=== PATIENT | female | born 1975 | race Caucasian/White ===

== ENCOUNTER 2018-12-20 06:10 | Inpatient (IN) | payer BC, OTHER ==
[~2018-12-20 06:10] MED LIST: Buffered Lidocaine 1% SYRIN* 1 ML/SYRINGE INTRADERM ONE; Famotidine IV* 10 MG/ML 2 ML (20 mg) IV ONE; Lactated Ringers 1000 ML Bag* 1,000 ML IV SCH; Sodium Citrate/Citric Acid* 15 ML UDC PO ONE
[2018-12-20 07:14] LABS: Urine Benzodiazepine Screen None Detected (None Detect); Urine Opiates Screen None Detected (None Detect)
[2018-12-20] MEDS ORDERED: Morphine PF AMP (0.5MG/ML)* 5 MG/10 ML AMP ONE (07:46)
[2018-12-20] MEDS ORDERED: Ondansetron INJ* 2 MG/ML VIAL ONE (07:47)
[2018-12-20] MEDS ORDERED: OXYTOCIN* 10 UNITS/ML 1 ML VIAL ONE (07:47)
[2018-12-20] MEDS ORDERED: Dexamethasone IV* 4 MG/ML 1 ML (4 MG) ONE (07:47)
[2018-12-20] MEDS ORDERED: Clindamycin 900 MG/D5W BAG(*) 900 MG/50 ML BAG IVPB ONE (08:00)
[2018-12-20] MEDS ORDERED: Phenylephrine 40 MCG/ML SYRINGE ONE (09:01)
[2018-12-20] MEDS ORDERED: fentaNYL* 50 MCG/ML 2 ML VIAL (100 MCG VIAL) ONE (09:10)
[2018-12-20] MEDS ORDERED: oxyCODONE/Acetamin 5/325 MG* TAB PO PRN (09:33)
[2018-12-20] MEDS ORDERED: Witch Hazel PAD* JAR TOPICAL PRN (09:33)
[2018-12-20] MEDS ORDERED: Dibucaine 1% 28.35 GM TUBE PR PRN (09:33)
[2018-12-20] MEDS ORDERED: Scopolamine 1.5 mg* PATCH TRANSDERM PRN (09:39)
[2018-12-20] MEDS ORDERED: fentaNYL* 50 MCG/ML 2 ML VIAL (100 MCG VIAL) IV PRN (09:39)
[2018-12-20] MEDS ORDERED: Ondansetron INJ* 2 MG/ML VIAL IV PRN ×2 (09:39)
[2018-12-20] MEDS ORDERED: Naloxone* 0.4 MG/ML 1 ML VIAL IV PRN ×2 (09:39)
[2018-12-20] MEDS ORDERED: DiMENhydriNATE IV* 50 MG/ML VIAL IV PUSH PRN ×2 (09:39→09:47)
[2018-12-20] MEDS ORDERED: Nalbuphine* 10 MG/ML 1 ML VIAL IV PRN ×2 (09:39→09:47)
[2018-12-20] MEDS ORDERED: Lactated Ringers 1000 ML Bag* 1,000 ML IV SCH (10:00)
[2018-12-20] MEDS: Ketorolac INJ* 30 MG/ML 1 ML VIAL IV PUSH SCH ×3 (10:06→22:02)
[2018-12-20] MEDS: Simethicone TAB* 80 MG TAB.CHEW PO SCH ×3 (14:26→21:04)
[2018-12-20] MEDS: Docusate CAP* 100 MG PO SCH ×2 (17:24→21:04)
--- NOTE | 2018-12-20 17:38 | OP ---
DATE OF OPERATION: 12/20/18 - ROOM #115 DATE OF : 75 SURGEON: Ar Serrano MD CHEMICAL LAB TECHNICIAN: Kasi Hunter MD ANESTHESIOLOGIST: Dr. Bey. ANESTHESIA: Spinal. PRE-OP DIAGNOSES: Thirty nine weeks' gestation, advanced maternal age and desiring elective section. POST-OP DIAGNOSES: Thirty nine weeks' gestation, advanced maternal age and desiring elective section. OPERATIVE PROCEDURE: Primary low transverse section with vacuum assist. ESTIMATED BLOOD LOSS: 800 cc. URINE OUTPUT: 50 cc. IV FLUIDS: 1700 cc lactated Ringer's. MATERIALS TO LAB: Cord blood. INDICATIONS: This patient was a 43-year-old 1, para 0, with a from in vitro fertilization. The patient's was otherwise uncomplicated other than advanced maternal age. After discussion regarding her options, the patient desired to have a primary section rather than take the risks of labor. She was extensively counseled and consent was signed. FINDINGS: Normal-appearing uterus, fallopian tubes, and ovaries. Delivery was productive of a 6 pounds 15 ounces female with Apgars of 9 and 9. TIME OF DELIVERY: 851 COMPLICATIONS: None. DESCRIPTION OF PROCEDURE: The risks, benefits, and alternatives were described to the patient and informed consent was obtained. The patient was taken to the operating room with IV running where spinal anesthesia was induced and found to be adequate. The patient was prepped and draped in the normal sterile fashion in the dorsal supine position with a leftward tilt. A Pfannenstiel skin incision was made with a scalpel and this was carried down to the underlying fascia sharply. The fascia was then scored in the midline with the scalpel. The incision was extended using Joseph scissors. The rectus muscles were dissected off the rectus fascia using blunt and sharp dissection. The rectus muscles were in the midline bluntly. The peritoneum was also entered bluntly. A bladder blade was placed. A bladder flap was created sharply using Metzenbaum scissors. A low transverse uterine incision was made with the scalpel. The lower edge of the placenta was encountered which resulted in moderate bleeding. The incision and blunt dissection was carried down to the amniotic cavity which was productive of clear fluid. The uterine incision was extended with blunt traction. The head was elevated to the level of the incision, but delivery of the head through the incision was difficult, partly because of the anterior placenta. A Kiwi vacuum was applied to the head and with gentle traction and fundal pressure, the head was able to be delivered. The Kiwi was removed. With fundal pressure, the shoulders and body delivered without difficulty. The infant had good tone and cried shortly after delivery. The cord was doubly clamped and cut. The was then handed to the awaiting joss house keeper. Cord blood was collected. The placenta then delivered with manual extraction. The uterus was then exteriorized and cleared of all clots and debris. The uterine incision was reapproximated using 0 Vicryl in a running-locked fashion. A second layer of imbricating sutures of 0 Vicryl was also placed with good hemostasis. The posterior cul-de-sac was irrigated with saline. The uterus was then returned to the abdomen, and the incision was reinspected and noted to be hemostatic. The peritoneum was closed with 3-0 Vicryl in a running fashion. The fascia was closed with 0 Vicryl in a running fashion. The skin was then closed with 4-0 Monocryl in a subcuticular stitch. Mastisol and Steri-Strips were placed over the incision which was then covered with a sterile bandage. The patient tolerated the procedure well. Sponge, lap, and needle counts were correct x2. [id number]/[facility] #: [id number] [facility] HOSPITALCassie
[2018-12-21] MEDS: Ketorolac INJ* 30 MG/ML 1 ML VIAL IV PUSH SCH (05:29)
[2018-12-21 06:50] LABS: ABS Basophils 0.1 10^3/ul (0-0.2); ABS Lymphocytes 2.3 10^3/ul (1.0-4.8); ABS Neutrophils 9.7 10^3/ul (1.5-7.7); Eosinophil % 0.2 %; Hematocrit 27 % (35-47); Hemoglobin 9.2 g/dL (12.0-16.0); Lymphocyte % 17.2 %; Mean Corpuscular HGB Conc 34 g/dL (31-36); Mean Corpuscular Hemoglobin 26 pg (27-31); Mean Corpuscular Volume 78 fL (80-97); Platelet Count 214 10^3/uL (150-450); Red Blood Count 3.48 10^6 /uL (3.70-4.87); Red Cell Distribution Width 14 % (10-15); White Blood Count 13.1 10^3/uL (3.5-10.8)
[2018-12-21] MEDS: Ferrous Gluconate TAB* 324 MG TAB PO SCH ×2 (09:01→20:48)
[2018-12-21] MEDS: Docusate CAP* 100 MG PO SCH ×3 (09:01→20:50)
[2018-12-21] MEDS: Simethicone TAB* 80 MG TAB.CHEW PO SCH ×3 (09:01→18:24)
--- NOTE | 2018-12-21 10:21 | PN ---
Progress Note - Progress Note Date of Service: 12/21/18 - POD#1 s/p LTCS Note: Patient is POD#1 s/p LTCS. She is trying to breastfeed her infant with support. She had the pimentel catheter removed and was able to void urine without difficulty. She had nausea yesterday but received the scopolamine patch which has helped. Vital Signs Temp 98.7 F 12/21/18 07:57 Pulse 76 12/21/18 07:57 Resp 16 12/21/18 07:57 BP 100/56 12/21/18 07:57 Pulse Ox 98 12/21/18 06:06 Intake & Output 12/20/18 12/21/18 12/21/18 18:59 06:59 18:59 Intake Total 2000 Output Total 444 986 7980 Balance 1100 -650 -1150 Intake: IV Fluids 1000 LR 1000 IVPB 1000 LR 1000 Output: Pimentel 739 632 9741 abdomen soft, mild distension, dressing dry and intact extremities nontender lochia moderate Laboratory Results - last 24 hr 12/21/18 06:36 WBC 13.1 H RBC 3.48 L Hgb 9.2 L Hct 27 L MCV 78 L MCH 26 L MCHC 34 RDW 14 Plt Count 214 MPV 8.0 Neut % (Auto) 74.2 Lymph % (Auto) 17.2 [place] % (Auto) 7.7 Eos % (Auto) 0.2 Baso % (Auto) 0.7 Absolute Neuts (auto) 9.7 H Absolute Lymphs (auto) 2.3 Absolute Monos (auto) 1.0 H Absolute Eos (auto) 0.0 Absolute Basos (auto) 0.1 Absolute Nucleated RBC 0.0 Nucleated RBC % 0.0 Assessment: S/p LTCS with acute postoperative blood loss anemia. Plan: continue supportive care and support. Begin iron supplementation when tolerating regular diet. Alicia Quinones MD
[2018-12-21] MEDS: oxyCODONE/Acetamin 5/325 MG* TAB PO PRN ×2 (15:58→20:49)
[2018-12-22] MEDS: oxyCODONE/Acetamin 5/325 MG* TAB PO PRN ×6 (00:58→21:49)
[2018-12-22] MEDS: Ferrous Gluconate TAB* 324 MG TAB PO SCH ×2 (08:53→21:50)
[2018-12-22] MEDS: Simethicone TAB* 80 MG TAB.CHEW PO SCH ×4 (08:53→21:50)
[2018-12-22] MEDS: Docusate CAP* 100 MG PO SCH ×3 (08:53→21:51)
--- NOTE | 2018-12-22 11:30 | PN ---
Progress Note - Progress Note Date of Service: 12/22/18 - POD#2 s/p PLTCS Note: Patient is doing well postop Day #2. She is tolerating regular diet and passing flatus. She has not had a bowel movement. She is taking stool softener. She is voiding urine without difficulty. Her pain medication is not relieving her incision pain that well and she gets very sleepy from the percoset every 4 hours. She is breast feeding baby but states her colostrum and milk and not coming out yet. Her nurse has been helping her supplement formula with a syringe. O: Vital Signs Temp 97.1 F 12/22/18 08:29 Pulse 70 12/22/18 08:29 Resp 18 12/22/18 08:53 BP 111/74 12/22/18 08:29 Pulse Ox 98 12/21/18 06:06 Intake & Output 12/21/18 12/22/18 12/22/18 18:59 06:59 18:59 Output Total 1550 Balance -1550 Output: Urine 400 Shaffer 1150 Abdomen: soft, not distended, incision dry and intact, extremities nontender lochia scant Assessment: POD#2 s/p primary LTCS with difficulty with breast feeding, pain management by percoset not optimally controlled. Plan: continue support, use abdominal binder to assist pain relief. Alicia Quinones MD
[2018-12-22] MEDS ORDERED: Acetaminophen TAB* 325 MG PO PRN (11:31)
[2018-12-23] MEDS: oxyCODONE/Acetamin 5/325 MG* TAB PO PRN ×2 (02:23→07:44)
[2018-12-23] MEDS: Ferrous Gluconate TAB* 324 MG TAB PO SCH (07:42)
[2018-12-23] MEDS: Simethicone TAB* 80 MG TAB.CHEW PO SCH (07:43)
[2018-12-23] MEDS: Docusate CAP* 100 MG PO SCH (07:43)
[2018-12-23 08:01] VITALS: BP 125/73
[2018-12-23] MEDS ORDERED: Scopolamine PATCH Remove* 1 NOTE MISC PATCH OFF ONE (12:00)
== END 2018-12-23 13:20 | disposition home or self-care (01) | DRG 788 ==
LOC: MCHOB 06:10
PROVIDERS: ADMIT Obstetrics & Gynecology; ATTEND Obstetrics & Gynecology
PROC: 10907ZC Drainage of Amniotic Fluid, Therapeutic from Products of Conception, Via Natural or Artificial Opening (ICD-10-PCS; 2018-12-20)
PROC: 10D00Z1 Extraction of Products of Conception, Low, Open Approach (ICD-10-PCS; principal; 2018-12-20 08:00)
DX: O99.344 Other mental disorders complicating childbirth (principal); F41.9 Anxiety disorder, unspecified; Z3A.39 39 weeks gestation of pregnancy; Z37.0 Single live birth
CPT/HCPCS: 36415; 80307; 85025; A9270-GY; J1100; J1885; J2405; J2590; J3010